=== PATIENT | male | born 1975 | race Caucasian/White ===

== ENCOUNTER 2024-05-13 16:31 | Inpatient (IN) | payer BC, SELFPAY ==
[2024-05-13] VITALS (19 sets, daily range): BP systolic 91–136; BP diastolic 62–99; BMI 28.4
--- NOTE | 2024-05-13 10:34 | ED.GENMED ---
Addendum entered and electronically signed by Radha Farah MD 05/13/24 15:50:
Dr Braxton from cardiology evaluated patient at bedside. Given patient's initial hypotension we will hold off on nitro patch and will likely proceed with cardiac catheterization. Will give 1 sublingual nitroglycerin instead. Patient already
received aspirin. Will hold off on Brilinta. I did add on a stat lipid panel and A1c. Hospitalist aware of plan changes.
Original Note:
History of Present Illness
<Radha Farah MD - Last Filed: 05/13/24 14:45>
General
Chief Complaint: Fainting/Passed Out
Time Seen by Provider: 05/13/24 10:34
History of Present Illness
History of Present Illness:
Patient is a 48-year-old man who is otherwise healthy presenting to the emergency room after an episode of passing out. Per patient he states that he was feeling well yesterday and this morning. 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 He
said that he knows that he was under power while using his bike. 30 minutes later he was sitting at the breakfast table and started to not feel well. Per the he went to the couch and then laid on the floor. He started to get arm pain chest
pain and she checked his blood pressure and it was extremely low. He did not pass out. Upon medics arrival he was awake and alert with improved coloration. His initial blood pressure was 70/30. He was complaining of chest pain that radiated to
his back as well as numbness tingling to the bilateral arm. They obtained a twelve-lead which did not show any ischemic changes. The given aspirin nitro. The started give him fluids. They did the tilt test on him when he syncopized. He did
receive about 500ml that brought his blood pressure up to 107/84. At this time patient's complaint is some chest pain that radiates to his back with numbness tingling in both his arms. No weakness. No leg pain. No palpitations. No family
history of sudden cardiac or cardiac arrhythmia that he is aware of. He did not feel lightheaded dizzy with the exercise this morning.
Past History
<GREY Sapp - Last Filed: >
Past History
ED Past Medical History: Hypercholesterolemia (Minimal)
Social History
Tobacco: Former smoker
Personal:
Living: with family
Employment: Employed
Family History
Family History: Negative Early CAD or CAD
Phy Exam
<Radha Farah MD - Last Filed: 05/13/24 14:45>
Physical Exam
Physical Exam:
GENERAL: in no acute distress
HEENT: normocephalic, extraocular movements intact, moist oral mucosa
NECK: normal inspection
RESPIRATORY: no respiratory distress, clear to auscultation bilaterally
CARDIOVASCULAR: regular rate and rhythm, 2+ radial pulses bilateral
ABDOMEN/: soft, non-distended, non-tender to palpation, no rebound or guarding
EXTREMITIES: non-tender, no edema/swelling
NEUROLOGIC: awake and alert, moves all extremities, equal strength, no sensory deficits
SKIN: warm
Course
<Radha Farah MD - Last Filed: 05/13/24 14:45>
Orders/Labs/Results
Orders:
Orders
05/13/24 08:00
Nitroglycerin [Nitro-Dur] 0.2 mg TRANSDERM DAILY
05/13/24 10:38
EKG [Electrocardiogram (*1)] Urgent
Reason for Study: Chest Pain
EKG- Treatment ONCE
05/13/24 10:42
Ct Chest/Abd/Pel Angio W/Wo Iv Urgent
Reason For Exam: syncope, cp/backpain
05/13/24 10:44
Complete Blood Count/With Diff Urgent
Comprehensive Metabolic Panel Urgent
Troponin I Urgent
05/13/24 10:47
EKG- Treatment ONCE
05/13/24 11:34
Acetaminophen [Tylenol] 650 mg .ROUTE .STK-MED ONE
05/13/24 11:36
Acetaminophen [Tylenol] 650 mg PO NOW STA
05/13/24 12:36
Ketorolac [Toradol] 15 mg IV NOW STA
Mag Hydrox/Al Hydrox/Simeth [Maalox] 30 ml Phenobarb/Hyoscy/Atropine/Scop [] 10 ml Viscous Lidocaine 2% [Xylocaine Viscous Cup] 10 ml PO NOW
05/13/24 12:38
Mag Hydrox/Al Hydrox/Simeth [Maalox] 30 ml .ROUTE .STK-MED ONE
Phenobarb/Hyoscy/Atropine/Scop [] 10 ml .ROUTE .STK-MED ONE
Viscous Lidocaine 2% [Xylocaine Viscous Cup] 15 ml .ROUTE .STK-MED ONE
05/13/24 13:30
Electrocardiogram (*1) Urgent
Reason for Study: Chest Pain
05/13/24 13:32
Troponin I Urgent
05/13/24 14:31
PTT Urgent
Comment: Obtain baseline before beginning heparin infusion if not already collected
Heparin 4,000 units IV NOW STA
Pharmacy Request to Place See Dose Instructions PO NOW STA
Discontinue all Active Warfarin orders?: Yes
Nursing to Place Non Medication Order As Directed
Physician Order: PTT 6 hours after initial start of Heparin infusion
05/13/24 14:45
Heparin 74169 Units/250 ml 25,000 units in 250 ml IV PER PROTOCOL
Weight to be used for heparin protocol in kilograms (kg):: 92.3
Protocol:: Cardiac Tx/Acute Coronary
PTT Goal Range to be used:: PTT 73 to 111 seconds
Order type:: Initial
INITIAL Infusion Dose (UNITS/KG/hr) & then follow protocol:: 15 units/kg/hr
Infusion Dose in UNITS/hr & then follow protocol (UNITS/hr):: 1,400
INFUSION RATE in mL/hr & then follow protocol (mL/hr):: 14
PTT less than or equal to 64 seconds:: Increase rate by 200 units/hr (+ 2 mL/hr)
PTT 64.1 to 72.9 seconds:: Increase rate by 100 units/hr (+ 1 mL/hr)
PTT 73 to 111 seconds:: Target Range. No change in rate.
PTT 111.1 to 130.9 seconds:: Decrease rate by 100 units/hr (- 1 mL/hr)
PTT 131 to 199.9 seconds:: HOLD for 1 hr. Then decrease rate by 200 units/hr (- 2 mL/hr)
PTT greater than or equal to 200 seconds:: HOLD for 2 hrs & Notify Provider. Then decrease by 200 units/hr (-
2 mL/hr)
Lab follow-up:: Each change, PTT q6h until 2 consecutive are therapeutic. Then PTT
daily.
05/13/24 15:[address] See Dose Instructions IV DIRECTED
Abnormal Lab Results
05/13/24 05/13/24
10:44 13:32
Glucose 160 H mg/dl
(70-99)
Troponin I 0.213 H* D ng/ml
05/13/24 10:44
05/13/24 10:44
Vital Signs
Initial and Last Documented VS:
Initial Vital Signs
Temp Pulse Resp BP Pulse Ox
97.9 F 59 18 107/84 99
05/13/24 10:31 05/13/24 10:31 05/13/24 10:31 05/13/24 10:31 05/13/24 10:31
Last Documented Vital Signs
Temp Pulse Resp BP Pulse Ox
97.9 F 62 13 129/99 97
05/13/24 10:31 05/13/24 14:00 05/13/24 14:00 05/13/24 14:00 05/13/24 14:00
<GREY Sapp - Last Filed: >
Orders/Labs/Results
Orders:
Orders
05/13/24 08:00
Nitroglycerin [Nitro-Dur] 0.2 mg TRANSDERM DAILY
05/13/24 10:38
EKG [Electrocardiogram (*1)] Urgent
Reason for Study: Chest Pain
EKG- Treatment ONCE
05/13/24 10:42
Ct Chest/Abd/Pel Angio W/Wo Iv Urgent
Reason For Exam: syncope, cp/backpain
05/13/24 10:44
Complete Blood Count/With Diff Urgent
Comprehensive Metabolic Panel Urgent
Troponin I Urgent
05/13/24 10:47
EKG- Treatment ONCE
05/13/24 11:34
Acetaminophen [Tylenol] 650 mg .ROUTE .STK-MED ONE
05/13/24 11:36
Acetaminophen [Tylenol] 650 mg PO NOW STA
05/13/24 12:36
Ketorolac [Toradol] 15 mg IV NOW STA
Mag Hydrox/Al Hydrox/Simeth [Maalox] 30 ml Phenobarb/Hyoscy/Atropine/Scop [] 10 ml Viscous Lidocaine 2% [Xylocaine Viscous Cup] 10 ml PO NOW
05/13/24 12:38
Mag Hydrox/Al Hydrox/Simeth [Maalox] 30 ml .ROUTE .STK-MED ONE
Phenobarb/Hyoscy/Atropine/Scop [] 10 ml .ROUTE .STK-MED ONE
Viscous Lidocaine 2% [Xylocaine Viscous Cup] 15 ml .ROUTE .STK-MED ONE
05/13/24 13:30
Electrocardiogram (*1) Urgent
Reason for Study: Chest Pain
05/13/24 13:32
Troponin I Urgent
05/13/24 14:31
PTT Urgent
Comment: Obtain baseline before beginning heparin infusion if not already collected
Heparin 4,000 units IV NOW STA
Pharmacy Request to Place See Dose Instructions PO NOW STA
Discontinue all Active Warfarin orders?: Yes
Nursing to Place Non Medication Order As Directed
Physician Order: PTT 6 hours after initial start of Heparin infusion
05/13/24 14:45
Heparin [id number] Units/250 ml 25,000 units in 250 ml IV PER PROTOCOL
Weight to be used for heparin protocol in kilograms (kg):: 92.3
Protocol:: Cardiac Tx/Acute Coronary
PTT Goal Range to be used:: PTT 73 to 111 seconds
Order type:: Initial
INITIAL Infusion Dose (UNITS/KG/hr) & then follow protocol:: 15 units/kg/hr
Infusion Dose in UNITS/hr & then follow protocol (UNITS/hr):: 1,400
INFUSION RATE in mL/hr & then follow protocol (mL/hr):: 14
PTT less than or equal to 64 seconds:: Increase rate by 200 units/hr (+ 2 mL/hr)
PTT 64.1 to 72.9 seconds:: Increase rate by 100 units/hr (+ 1 mL/hr)
PTT 73 to 111 seconds:: Target Range. No change in rate.
PTT 111.1 to 130.9 seconds:: Decrease rate by 100 units/hr (- 1 mL/hr)
PTT 131 to 199.9 seconds:: HOLD for 1 hr. Then decrease rate by 200 units/hr (- 2 mL/hr)
PTT greater than or equal to 200 seconds:: HOLD for 2 hrs & Notify Provider. Then decrease by 200 units/hr (-
2 mL/hr)
Lab follow-up:: Each change, PTT q6h until 2 consecutive are therapeutic. Then PTT
daily.
05/13/24 15:[address] See Dose Instructions IV DIRECTED
Abnormal Lab Results
05/13/24 05/13/24
10:44 13:32
Glucose 160 H mg/dl
(70-99)
Troponin I 0.213 H* D ng/ml
05/13/24 10:44
05/13/24 10:44
Vital Signs
Initial and Last Documented VS:
Initial Vital Signs
Temp Pulse Resp BP Pulse Ox
97.9 F 59 18 107/84 99
05/13/24 10:31 05/13/24 10:31 05/13/24 10:31 05/13/24 10:31 05/13/24 10:31
Last Documented Vital Signs
Temp Pulse Resp BP Pulse Ox
97.9 F 62 13 129/99 97
05/13/24 10:31 05/13/24 14:00 05/13/24 14:00 05/13/24 14:00 05/13/24 14:00
<Radha Farah MD - Last Filed: 05/13/24 14:45>
MDM/Problems Addressed
Differential Diagnosis Includes:
Patient is a 48-year-old male who is otherwise healthy presenting to the emergency department after a near syncopal event. Vitals on arrival notable for blood pressure 107/74 and exam is otherwise reassuring. Differential consists of orthostatic
hypotension versus dissection given the location of his pain. Could also be ACS. Will check blood work EKG and give the remaining fluids. Will obtain CT dissection protocol.
Initial EKG per my interpretation with no ST elevation.
<Radha Farah MD - Last Filed: 05/13/24 14:45>
*Critical Care Note
Total Time (30-74mins, 75-104mins- exclusive of procedures): Not Applicable (47)
comment:
Critical care statement: A total of 47 minutes of critical care time was provided for this patient. This includes management of unstable vital signs, evaluation of the patient at bedside, reviewing the patient's pertinent medical records, ordering
and reviewing studies, arranging urgent treatment with development of a management plan, evaluating patient's response to treatment, frequent reassessment, and discussion with consultants. This time was separate from time utilized to perform the
aforementioned documented procedures.
<Radha Farah MD - Last Filed: 05/13/24 14:45>
Update Note
Update Note:
On reevaluation patient still having pain. Will try Toradol and GI cocktail. Blood pressure has improved status post IV fluids.
Initial blood work unremarkable. CT dissection protocol negative. He does have mild right-sided colitis.
On reevaluation patient appears and feels much better. He states that he only has numbness to the left hand. States that he is is having no chest pain. The arm pain has resolved.
Received a critical call as patient's troponin is 0.213. On reevaluation patient remains feeling much better. He states that he is maybe having 1 out of 10 chest pain and arm pain. I did discuss with cardiology given the NSTEMI with ongoing mild
pain. Recommended no catheterization for now. Will start heparin drip. Recommended Nitropatch. Discussed with hospitalist for admission. Patient aware to notify immediately if any pain tingling or symptoms worsen for repeat EKG.
ED Attending Note
<GREY Sapp - Last Filed: >
-
Portions of this chart may have been created with voice recognition software.� Occasional wrong word or��sound alike� substitutions may have occurred due to the inherent limitations of voice recognition software.
Discharge Plan
Departure
Patient Disposition: Admit
Date of Disposition: 05/13/24
Time of Disposition: 14:41
Presentation/result/management discussed w/ accepting MD/DO: Hospitalist
Discharge Problem:
Non-ST elevation [place] (NSTEMI)
Prescriptions:
No Action
No Current Medications
0
Referrals:
Bulmaro Chery CRNP [Family Provider] -
Interventions
Interventions:
*Risk Screen - Suicide Last Done: 05/13/24 10:38
*General Assessment Last Done: 05/13/24 10:38
*Neglect/Abuse Screening Last Done: 05/13/24 10:38
*ED- Fall Risk Assessment Last Done: 05/13/24 10:38
*ED COVID-19 Vaccine History Last Done: 05/13/24 10:38
ED- Cardiac Assessment Last Done: 05/13/24 10:38
ED- Neurological Assessment Last Done: 05/13/24 10:38
Discharge Date and Time
Print Language: TONGAN
[2024-05-13 10:57] LABS: % Basophils 0.4 % (0-2); % Eosinophils 1.3 % (0-6); % Immature Granulocytes 0.5 % (0-0.5); % Lymphocytes 26.7 % (20.5-51.1); % Monocytes 5.1 % (1.7-9.3); Absolute Eosinophils 0.1 10^3/uL (0-0.7); Absolute Lymphocytes 2.1 10^3/uL (1.2-3.4); Absolute Monocytes 0.4 10^3/uL (0.1-0.6); Absolute Neutrophils 5.3 10^3/uL (1.4-6.5); Hematocrit 46.7 % (39.0-52.0); Hemoglobin 15.6 g/dL (13.0-18.0); Mean Corp Hgb Conc. 33.4 g/dL (33.0-37.0); Mean Corpuscular Hgb 29.4 pg (27.0-31.0); Mean Corpuscular Volume 87.9 fL (80.0-94.0); Mean Platelet Volume 9.6 fL (7.4-10.4); Nucleated Red Blood Cells % 0 % (-); Platelet Count 290 10^3/uL (130-400); Red Blood Cell Count 5.31 10^6/uL (4.70-6.10)
[2024-05-13 11:13] LABS: ALT (SGPT) 30 U/L (0-50); AST (SGOT) 26 U/L (17-59); Albumin 4.2 g/dl (3.5-5.0); Alkaline Phosphatase 70 U/L (38-126); Blood Urea Nitrogen 19 mg/dl (9-20); Calcium 9.4 mg/dl (8.4-10.2); Carbon Dioxide 26 mmol/L (22-30); Chloride 104 mmol/L (98-107); Estimated Creatinine Clearance 87 ml/min; Glucose 160 mg/dl (70-99); Potassium 4.7 mmol/L (3.5-5.1); Sodium 138 mmol/L (135-145); Total Bilirubin 1.1 mg/dl (0.2-1.3); Total Protein 6.9 g/dl (6.3-8.2); eGFR > 60.00
[2024-05-13 11:24] LABS: Troponin I < 0.012 ng/ml
[2024-05-13] MEDS: TYLENOL 650 MG PO (11:36)
[2024-05-13] MEDS: TORADOL 15 MG IV (12:40)
[2024-05-13] MEDS: MAALOX 50 PO (12:41)
[2024-05-13 14:17] LABS: Troponin I 0.213 ng/ml
--- NOTE | 2024-05-13 14:51 | HPS.HSE ---
Family Physician
-
Family Physician: GREY Crabtree
Chief Complaint
-
Chest Pain
History of Present Illness
Patient is a 48 y/o male past medical history of hyperlipidemia, and impaired fasting glucose who presents with chest pain. Patient reports he completed a [employer] work out this morning as usual. About 30 minutes later he started to feel unwell.
He developed chest pain with associated bilateral arm numbness. His took his blood pressure which was noted to be very low. EMS was called who gave him 3 SL nitro and 4 81mg aspirins, and brought him to the emergency department. Initial
troponin was negative, but repeat troponin positive at 0.213. Patient denies any prior cardiac history.
Medical History
Past Medical History
Past Medical History: Reports Other
Additional Past Medical History:
Hyperlipidemia
Impaired Fasting Glucose
Past Surgical History: Reports Other
Additional Past Surgical History:
Appendectomy
Social History
Tobacco: Other (Former cigarette smoker, quit about 8 years ago; Currently Vaping)
Alcohol: Occasional
Family History
Family History: Other (Patient denies any family history of cardiac disease)
Allergies / Home Medications
Allergies reflects when Allergies were last updated in [facility].
Home Medications with original date entered in [facility]
Allergy/Medication List:
Allergies
Allergy/AdvReac Type Severity Reaction Status Date / Time
No Known Allergies Allergy Unverified 05/13/24 10:37
Home Medications
No Meds [No Current Medications] 04/21/14
Review of Systems
-
A 12 point ROS was completed and negative except as noted: Yes
Constitutional: Denies Fever or Chills
Respiratory: Denies Cough or Trouble Breathing
Cardiac: Reports See HPI
Physical Exam
Vital Signs
Vital Signs
Temp Pulse Resp BP Pulse Ox
97.9 F 62 13 129/99 97
05/13/24 10:31 05/13/24 14:00 05/13/24 14:00 05/13/24 14:00 05/13/24 14:00
Physical Exam
General: Comfortable and Conversant
HEENT: Anicteric and Moist mucous membranes
Respiratory: Clear and Non Labored Respirations
Cardiac: S1/S2 and Regular Rhythm
GI: Soft and Non Tender
Rectal: Deferred by Provider
Musculoskeletal: No Clubbing, No Cyanosis and No Edema
Skin: Warm and Dry
Neuro: Awake, Alert, Oriented and Nonfocal/grossly intact
Psych: Calm
Laboratory Results
-
05/13/24 10:44
05/13/24 10:44
Laboratory Results
Total Bilirubin 1.1 mg/dl (0.2-1.3) 05/13/24 10:44
AST 26 U/L (17-59) 05/13/24 10:44
ALT 30 U/L (0-50) 05/13/24 10:44
Alkaline Phosphatase 70 U/L (38-126) 05/13/24 10:44
Troponin I 0.213 ng/ml H* D 05/13/24 13:32
Data Reviewed
-
Lab Data: Labs Reviewed by me
Impression/Plan
-
Non-ST Elevation CT
-Consult Cardiology
-Trend troponin to peak
-Check Echo
-Continue heparin drip
-Continue Nitro-Patch
-Continue aspirin
-Check Lipid Panel and HgbA1c
-Plan for Cardiac Cath on Wednesday
Nicotine Dependence
-Encouraged patient to quit vaping
-Continue nicotine patch
DVT proph: Heparin drip
Code Status: Full Code
[2024-05-13 15:25] LABS: APTT 28.6 Sec (23.4-35.0)
[2024-05-13] MEDS: NITRO-DUR TRANSDERM (15:41)
[2024-05-13] MEDS: NITROSTAT (SUBLINGUAL) 0.4 MG SL (15:42)
--- NOTE | 2024-05-13 15:45 | CON.CAR ---
Consultation
Consultation Request
Date/Time Consultation Requested: 05/13/2024
Date/Time Consultation Performed: 05/13/2024
Requesting Provider: Dr. Farah
Performing Provider: Dr. Braxton
Reason for Consultation: Chest pain
Medical History
-
Chief Complaint: Chest pain/syncope
History of Present Illness:
48-year-old male with hyperlipidemia (untreated) and prediabetes/possible diabetes (untreated), and chronic cigarette use (since age 18) but then switched to all-day vaping 9 years ago who presented with chest pain and syncope at home. The patient
developed the symptoms after working on his [employer] bike. There was radiation of the pain to his bilateral shoulders and down to his left arm. The pain was very intense when it happened and he slid down to the floor at home in front of his ,
who then called EMS. EMS gave the patient sublingual nitroglycerin and his systolic blood pressure dropped to 70 mmHg; his blood pressure subsequently improved with a 500 cc bolus of normal saline. Currently, the patient is still having 1-2 out of
10 chest pain and left arm numbness; he appears pale. He is also experiencing some dyspnea. Labs were unremarkable, except for a glucose of 160 and the second set of troponin that was abnormal at 0.213 (first that was normal). The patient's
is at bedside.
Past Medical History
Past Medical History: Hypercholesterolemia and NIDDM (At least prediabetic, possibly diabetic)
Past Surgical History: Appendectomy
Social History
Tobacco: Vaping (All day; previously smoked cigarettes since age 18 but then started vaping all day 9 years ago)
Alcohol: Occasional
Personal:
Living: With Family
Employment: Employed
Family History
Family History: Reviewed & Not Pertinent
Allergies / Home Medications
Allergy/AdvReac Type Severity Reaction Status Date / Time
No Known Allergies Allergy Unverified 05/13/24 10:37
�Medication �Instructions �Recorded �Confirmed �Type
No Meds [No Current Medications] 04/21/14 05/13/24 History
Review of Systems
-
History Source: Patient
All other systems: Negative unless noted
Respiratory: Trouble Breathing
Neurological: Numbness (Left arm)
Physical Exam
Vital Signs
Temp Pulse Resp BP Pulse Ox
97.9 F 62 13 114/94 97
05/13/24 10:31 05/13/24 14:00 05/13/24 14:00 05/13/24 15:42 05/13/24 14:00
Lab Results
05/13/24 10:44
05/13/24 10:44
Troponin I 0.213 ng/ml H* D 05/13/24 13:32
Physical Exam
General: Comfortable and Other (Pale-appearing)
HEENT: Anicteric
Respiratory: Clear
Cardiac: S1/S2 and Regular Rhythm
Breast: N/A
GI: Soft
Rectal: Deferred by Provider
Musculoskeletal: No Edema
Skin: Warm and Dry
Neuro: AO x 3
Psych: Calm
Impression / Plan
-
48-year-old male with hyperlipidemia (untreated) and prediabetes/possible diabetes (untreated), and chronic cigarette use (since age 18) but then switched to all-day vaping 9 years ago who presented with chest pain and syncope at home. The patient
developed the symptoms after working on his [employer] bike. There was radiation of the pain to his bilateral shoulders and down to his left arm. The pain was very intense when it happened and he slid down to the floor at home in front of his ,
who then called EMS. EMS gave the patient sublingual nitroglycerin and his systolic blood pressure dropped to 70 mmHg; his blood pressure subsequently improved with a 500 cc bolus of normal saline. Currently, the patient is still having 1-2 out of
10 chest pain and left arm numbness; he appears pale. He is also experiencing some dyspnea. Labs were unremarkable, except for a glucose of 160 and the second set of troponin that was abnormal at 0.213 (first that was normal).
CP/NSTEMI/syncope:
-Cause for syncope is concerning for possible cardiac arrhythmia.
-The patient is still having mild chest pain and left arm this; cannot completely get him comfortable.
-Patient experienced hypotension previously; reluctant to continue to give him nitroglycerin/Nitropaste.
-Will start heparin (bolus and drip).
-Given full-dose aspirin.
-Case discussed with Interventional Cardiology; patient will undergo priority cardiac catheterization today, as symptoms persist.
-Will obtain echocardiogram this admission.
Hyperlipidemia:
-Check lipid panel.
-Will be started on statin.
Prediabetes:
-Check hemoglobin A1c.
Chronic heavy vaping/prior cigarette use:
-Counseled today at length on the importance of cessation; guidance offered (nicotine patches).
Data Reviewed
-
EKG: Report Reviewed by me (Normal sinus rhythm.)
CT Scan: Report Reviewed by me (No dissection)
Medical Tests (Nuc Med, Echo etc): Discussed with Physician (ER Attending, Costume Designer), Discussed with Nurse, Discussed with Patient and Discussed with Family ( at bedside)
Labs: Labs Reviewed by me, Discussed with Physician (ER Attending, Costume Designer), Discussed with Nurse and Discussed with Family ( at bedside)
[2024-05-13] MEDS: HEPARIN 4000 UNITS IV (15:46)
[2024-05-13] MEDS: HEPARIN 25000 UNITS/250 ML IV (15:48)
--- NOTE | 2024-05-13 15:50 | W.PN.UPDATE ---
Update Note
Progress Note Update
This is an addendum to the H&P written by Mikala Bateman on 05/13/2024.
48-year-old male past medical history of hyperlipidemia, prediabetes, presenting with chest pressure after using [employer] this morning with numbness rating down the left arm also with shortness of breath and sweating.
Pain improved with 4 nitroglycerin still has some pain. EMS gave him aspirin.
Patient initially hypotensive blood pressure in 70s before EMS was called.
EKG unremarkable. First troponin negative, second troponin 0.2.
CTA chest abdomen pelvis unremarkable apart from mild acute uncomplicated right-sided colitis that does not correlate clinically.
Presentation concerning for NSTEMI. Trend troponins until peak, continue aspirin, heparin drip, echo, cardiology consulted. Check A1c and lipid panel. Plan for potential catheterization today.
[2024-05-13 16:57] LABS: ACT-LR - POC 155 Seconds (116-155)
[2024-05-13 17:08] LABS: ACT-LR - POC 298 Seconds (116-155)
[2024-05-13 17:20] LABS: ACT-LR - POC 305 Seconds (116-155)
[2024-05-13 17:39] LABS: ACT-LR - POC 319 Seconds (116-155)
--- NOTE | 2024-05-13 18:09 | ITS.CL.CATH ---
Culinary Worker - Catheterization
Cardiac Catheterization
Procedure Report:
LEFT HEART CATH AND CORONARY INTERVENTION
Date of Procedure: May 13, 2024
Referring: Dr. Jacob Braxton
PROCEDURES:
1. Left heart catheterization with coronary and single-plane left ventriculography
2. Successful placement of overlapping 3.5 x 12 mm and 3.0 x 38 mm stents from the mid to distal right coronary artery. The stented segment was postdilated with a 3.5 mm noncompliant balloon to nominal pressures distally and to 22 lien in the
proximal and midportion of the stents
INDICATION: This is a 48-year-old gentleman with no prior cardiac history who reported the onset of substernal chest tightness and feeling poorly after riding his [employer] bike. He presented to [facility] via 911 transport. His initial
electrocardiogram did not suggest an acute ST elevation myocardial infarction. He received heparin and nitroglycerin with improvement/near resolution in symptoms. His initial troponin was undetectable but repeat troponin returned mildly elevated
and he continued to experience a low-grade chest tightness. He was seen and evaluated by Dr. Braxton who felt emergent angiography was appropriate in the setting of ongoing symptoms refractory to medical therapy.
ACCESS: Right radial artery, 6 Venezuelan sheath
HEMODYNAMICS (mmHg):
AO (s/d, m) : 100/52
LV (s/d) : 105/5
LVEDP : 13
CORONARY FINDINGS
Dominance: Right
LEFT MAIN: Normal
LEFT ANTERIOR DESCENDING: The LAD arises normally from the left main and runs in the anterior interventricular groove. The mid LAD beyond a small first diagonal branch has a 70% stenosis. The mid to distal LAD has diffuse luminal irregularities
but no focal obstructive stenosis. The apical LAD has a 95% stenosis.
CIRCUMFLEX: The circumflex is a medium caliber nondominant vessel that supplies a single large obtuse marginal branch. The mid circumflex proximal to the obtuse marginal branch has a 60% stenosis and there is a 50% stenosis in the proximal portion
of the obtuse marginal branch.
RIGHT CORONARY: The right coronary artery is a dominant vessel with a 60% stenosis in the mid vessel beyond a terminal RV marginal branch. The distal right coronary artery becomes 100% occluded proximal to the crux and the vessel.
VENTRICULOGRAPHY: Left ventriculography is performed in an [place] projection. The digital single-plane left ventricular ejection fraction is estimated at 55% with posterior basal and diaphragmatic inferior hypokinesis
ANGIOPLASTY PROCEDURE DETAIL: Upon review of the diagnostic catheterization films the decision was made to proceed with percutaneous revascularization of the occluded RCA. Intravenous heparin was administered and the ACT was monitored throughout
the procedure and maintained within therapeutic limits. A 180 mg loading dose of ticagrelor was given at the beginning of the interventional procedure.
The origin of the right coronary artery was cannulated with a 6 Venezuelan JR4 guiding catheter and a BMW guidewire was advanced to the distal right coronary artery and crossed the occluded segment with a moderate degree of difficulty. Predilation was
performed using a 2.0 mm balloon and was followed by placement of a 3.0 x 38 mm Shaun stent which was implanted at nominal pressures with the distal edge of the stent proximal to the crux of the RCA. Unfortunately, the 38 mm stent did not cover this
stenotic segment in the mid right coronary artery and a second 3.5 x 12 mm Kensal stent was positioned proximal to and overlapping with the initial stent. The 3.5 x 12 mm Kensal stent was implanted at nominal pressures. The entire stented segment was
postdilated with a 3.5 mm noncompliant balloon to nominal pressures distally, 18-20 lien in the midportion of the stent and to 22 lien in the proximal to midportion of the stented segment
CONSCIOUS SEDATION: Oversight was provided for conscious sedation during the procedure. A circulating nurse was dedicated to monitoring consciousness and administering appropriate levels of conscious sedation during the procedure
RADIATION SUMMARY: Fluoro Time (min): 25.2, Dose (mGy): 931, DAP (Gy.cm2) : 63
CONCLUSIONS
1. Evolving non-ST segment elevation inferior wall myocardial infarction with 100% occlusion of the distal RCA. Overlapping 3.5 x 12 mm and 3.0 x 38 mm Kensal stents were implanted from the mid to distal RCA and postdilated to high pressures with a
3.5 mm noncompliant balloon
2. Residual coronary disease involving the mid LAD just beyond the first diagonal branch and apical LAD as well as mid circumflex/OM1.
3. Preserved LV systolic function with posterior basal and diaphragmatic inferior hypokinesis
RECOMMENDATIONS
1. Uninterrupted dual antiplatelet therapy for 12 months
2. High intensity statin therapy
3. Will trend serial troponin levels and obtain hemoglobin A1c and fasting lipid profile
4. Guideline directed medical therapy will be administered/titrated during his hospitalization
Copy to: Dr. Jacob Braxton
--- NOTE | 2024-05-13 18:15 | PTCARENOTE ---
Received pt from the cathode maker. VSS Right radial band intact w/ 11 ml of air. NSS at KVO. Pt denies any chest pain or any other discomfort. Will monitor.
[2024-05-13 18:29] LABS: HDL Cholesterol 42 mg/dl; LDL Cholesterol, Calculated 141 mg/dl; Total Cholesterol 202 mg/dl (50-199); Triglyceride 96 mg/dl (10-149); Very Low Density Lipoprotein 19 mg/dl (0-30)
[2024-05-13] MEDS: NSS 500 IV (18:35)
[2024-05-13] MEDS: NICODERM TRANSDERMAL 14 MG TRANSDERM (18:44)
[2024-05-13] MEDS: LIPITOR 80 MG PO (18:45)
[2024-05-13] MEDS: DULCOLAX 10 MG RECTAL (19:58)
[2024-05-13] MEDS: MIRALAX 17 GRAMS PO (20:43)
[2024-05-14] VITALS (9 sets, daily range): BP systolic 93–133; BP diastolic 56–84
--- NOTE | 2024-05-14 00:46 | PTCARENOTE ---
assumed care of patient at the change of shift. AAOx3. family at the bedside. denies any cp. mild complaint of sob-baseline per patient. lungs clear throughout. SR on tele 60s. bp stable. R radial site CDI. no issues removed radial band. answered
all questions. med list/ACS booklet provided. educated patient to inform RN with any new changes overnight. ambulating to the bathroom independently. x1 BM. urinating with no issues. call brower within reach.
[2024-05-14 07:10] LABS: Hematocrit 42.1 % (39.0-52.0); Hemoglobin 14.4 g/dL (13.0-18.0); Mean Corp Hgb Conc. 34.2 g/dL (33.0-37.0); Mean Corpuscular Hgb 29.3 pg (27.0-31.0); Mean Corpuscular Volume 85.7 fL (80.0-94.0); Mean Platelet Volume 9.8 fL (7.4-10.4); Platelet Count 268 10^3/uL (130-400); Red Blood Cell Count 4.91 10^6/uL (4.70-6.10); Red Cell Dist. Width 13.1 % (11.5-14.5); White Blood Cell Count 11.2 10^3/uL (4.8-10.8)
[2024-05-14 07:15] LABS: Blood Urea Nitrogen 13 mg/dl (9-20); Calcium 9.1 mg/dl (8.4-10.2); Carbon Dioxide 24 mmol/L (22-30); Chloride 104 mmol/L (98-107); Estimated Creatinine Clearance 119 ml/min; Glucose 128 mg/dl (70-99); HDL Cholesterol 40 mg/dl; LDL Cholesterol, Calculated 115 mg/dl; Potassium 4.1 mmol/L (3.5-5.1); Sodium 134 mmol/L (135-145); Total Cholesterol 176 mg/dl (50-199); Triglyceride 107 mg/dl (10-149); Very Low Density Lipoprotein 21 mg/dl (0-30); eGFR > 60.00
[2024-05-14] MEDS: NICODERM TRANSDERMAL 14 MG TRANSDERM (09:06)
[2024-05-14] MEDS: LOW STRENGTH ASPIRIN 81 MG PO (09:10)
[2024-05-14] MEDS: BRILINTA 90 MG TUBE ×2 (09:11→20:55)
--- NOTE | 2024-05-14 12:10 | W.PN.CD ---
Today's Communication / Plan
-
-Likely cause for syncope was arrhythmogenic as RCA was occluded.
-Status-post TOBIAS x 2 to mid to distal RCA yesterday; telemetry stable.
-Residual CAD: 70% mid LAD, 95% apical LAD, 60% LCX, 50% OM.
-Interventional Cardiology to review films regarding possible staged PCI; will make NPO overnight.
-Continue aspirin, Brilinta, and atorvastatin 80 mg daily; no beta-eduard secondary to baseline bradycardia.
-Echocardiogram tomorrow.
-Counseled again today on the importance of vaping cessation; guidance offered (nicotine patches).
Impression / Plan
-
48-year-old male with hyperlipidemia (untreated) and prediabetes/possible diabetes (untreated), and chronic cigarette use (since age 18) but then switched to all-day vaping 9 years ago who presented with chest pain and syncope at home. The patient
developed the symptoms after working on his [place] bike. There was radiation of the pain to his bilateral shoulders and down to his left arm. The pain was very intense when it happened and he slid down to the floor at home in front of his ,
who then called EMS. EMS gave the patient sublingual nitroglycerin and his systolic blood pressure dropped to 70 mmHg; his blood pressure subsequently improved with a 500 cc bolus of normal saline. Currently, the patient is still having 1-2 out of
10 chest pain and left arm numbness; he appears pale. He is also experiencing some dyspnea. Labs were unremarkable, except for a glucose of 160 and the second set of troponin that was abnormal at 0.213 (first that was normal).
CP/NSTEMI/syncope:
-Likely cause for syncope was arrhythmogenic as RCA was occluded.
-Status-post TOBIAS x 2 to mid to distal RCA yesterday; telemetry stable.
-Residual CAD: 70% mid LAD, 95% apical LAD, 60% LCX, 50% OM.
-Troponin peaked at 134.
-Interventional Cardiology to review films regarding possible staged PCI; will make NPO overnight.
-Continue aspirin, Brilinta, and atorvastatin 80 mg daily; no beta-eduard secondary to baseline bradycardia.
-Echocardiogram tomorrow.
Hyperlipidemia:
-LDL is 115 (goal less than 55).
-Continue atorvastatin 80 mg daily; patient was not on a statin at home.
Prediabetes:
-Hemoglobin A1c 6.0%.
-Appropriate lifestyle/dietary management recommended.
Chronic heavy vaping/prior cigarette use:
-Counseled again today on the importance of vaping cessation; guidance offered (nicotine patches).
Physical Exam
Vital Signs/Labs
Vital Signs
Temp Pulse Resp BP Pulse Ox
98.3 F 59 18 113/82 97
05/14/24 07:06 05/14/24 05:45 05/14/24 07:06 05/14/24 05:06 05/14/24 07:06
05/13/24 05/14/24 05/15/24
05:59 06:59 06:59
Actual Weight
05/14/24 06:54
05/14/24 06:54
APTT Cancelled 05/14/24 00:30
Triglycerides 107 mg/dl (10-149) 05/14/24 06:54
LDL Cholesterol, Calc 115 mg/dl 05/14/24 06:54
VLDL Cholesterol, Calc 21 mg/dl (0-30) 05/14/24 06:54
HDL Cholesterol 40 mg/dl 05/14/24 06:54
LAB Results
05/13/24 05/13/24 05/13/24
10:44 13:32 18:44
Troponin I < 0.012 0.213 H* D 134.000 H* D
05/14/24 05/14/24
00:29 06:54
Troponin I 93.400 H* D 59.400 H* D
Physical Exam
Constitutional: No acute distress and Comfortable
EENT: Anicteric
Cardiovascular: Rhythm & rate is regular, Pedal edema is absent, Systolic murmur absent and S1S2 is normal
Respiratory: Respiratory effort normal and Lungs clear to auscul.
GI: Soft
Neuro/Psych: AO x 3
Other: Skin (Warm, dry, intact)
Data Reviewed
-
Date of Service: May 14, 2024
EKG: Tracing Personally Visualized and interpreted (Telemetry: Sinus rhythm)
Medical Tests (PFT, Pathology etc): Discussed with Nurse (Primary Hospitalist), Discussed with Patient and Discussed with Family ( at bedside)
Labs: Labs Reviewed by me
[2024-05-14] MEDS: NITRO-DUR 0.2 MG TRANSDERM (12:56)
--- NOTE | 2024-05-14 14:34 | W.PN.HOSP.TC ---
Today's Communication/Plan
-
await decision from Cardio regarding possible further intervention
Assessment / Plan
Assessment / Plan
Non-ST Elevation AR
Trop 0.213-->134-->93.4-->59.4
-Consulted Cardiology
underwent TOBIAS x 2 to mid-distal RCA
await further input from cardio regarding possible staged PCI
-Check Echo
-now on Lovenox 40 qd
-Continue Nitro-Patch
-Continue aspirin/Brilinta
- LDL 115/HDL40
will check Lp(a)
discussed with Cardio adding low dose Toprol XL, preference is to hold off for now
Nicotine Dependence
-patient told to quit vaping. Told he is done with Nicotine
-Continue nicotine patch
DVT proph: Lovenox
reviewed with and Dr. Braxton
Code Status: Full Code
Anticipated Discharge: > 48 hours
Subjective/Interval History
-
Date of Service: May 14, 2024
No chest pain
Objective Data
-
Labs:
Laboratory Results
05/14/24
06:54
WBC 11.2 H
Hgb 14.4
Hct 42.1
Plt Count 268
Sodium 134 L
Potassium 4.1
Chloride 104
Carbon Dioxide 24
BUN 13
Creatinine 0.8
Glucose 128 H
Calcium 9.1
Vital Signs:
Vital Signs
Temp Pulse Resp BP Pulse Ox
98.1 F 63 18 96/71 97
05/14/24 12:42 05/14/24 12:45 05/14/24 12:42 05/14/24 12:39 05/14/24 12:42
I&O
05/13/24 05/14/24 05/15/24
05:59 06:59 06:59
Intake Total
Balance
Review of Systems
-
History Source: Patient and Family ( at bedside)
Constitutional: Denies Fever
EENT: Reports No Symptoms Reported
Respiratory: Reports No Symptoms
Cardiac: Reports No Symptoms; Denies Chest Pain or Palpitations
Abdomen/GI: Reports No Symptoms; Denies Abdominal Pain
Genitourinary: Reports No Symptoms
Physical Exam
-
General: Well Developed, Well Nourished and No Apparent Distress
HEENT: Normocephalic, Atraumatic and Moist Mucous Membranes
Respiratory: Clear to Auscultation; Negative Wheezes, Rales or Rhonchi
Cardiac: Regular Rhythm and S1/S2
GI: Soft, Nontender and Nondistended
Musculoskeletal: No Clubbing, No Cyanosis and No Edema
Neuro: Awake, Alert and Oriented
[2024-05-14] MEDS: TYLENOL 650 MG PO (16:23)
--- NOTE | 2024-05-14 16:39 | PTCARENOTE ---
Discussed the nitroglycerin patch w/ pt and pt's . Initially the pt refused the patch. After further education by RN, pt agreed to wear the patch. Will monitor.
[2024-05-14] MEDS: LOVENOX 40 MG SC (20:54)
[2024-05-14] MEDS: MIRALAX 17 GRAMS PO (20:54)
[2024-05-14] MEDS: LIPITOR 80 MG PO (20:55)
[2024-05-15] VITALS (13 sets, daily range): BP systolic 102–122; BP diastolic 74–88; BMI 27.5
--- NOTE | 2024-05-15 00:52 | PTCARENOTE ---
Rec'd pt at change of shift. VSS and SR on TELE monitor. Pt denies any pain or discomfort. See MAR and flowchart for full pt assessment. Pt resting with call brower in reach and plan of care ongoing.
[2024-05-15 05:24] LABS: % Basophils 0.2 % (0-2); % Eosinophils 2.8 % (0-6); % Immature Granulocytes 0.4 % (0-0.5); % Lymphocytes 20.3 % (20.5-51.1); % Monocytes 9.5 % (1.7-9.3); % Neutrophils 66.8 % (42.2-75.2); Absolute Eosinophils 0.2 10^3/uL (0-0.7); Absolute Lymphocytes 1.7 10^3/uL (1.2-3.4); Absolute Monocytes 0.8 10^3/uL (0.1-0.6); Absolute Neutrophils 5.6 10^3/uL (1.4-6.5); Hematocrit 45.2 % (39.0-52.0); Hemoglobin 15.2 g/dL (13.0-18.0); Mean Corp Hgb Conc. 33.6 g/dL (33.0-37.0); Mean Corpuscular Hgb 29.1 pg (27.0-31.0); Mean Corpuscular Volume 86.4 fL (80.0-94.0); Mean Platelet Volume 10.1 fL (7.4-10.4); Nucleated Red Blood Cells % 0 % (-); Platelet Count 281 10^3/uL (130-400); Red Blood Cell Count 5.23 10^6/uL (4.70-6.10); Red Cell Dist. Width 13.2 % (11.5-14.5); White Blood Cell Count 8.3 10^3/uL (4.8-10.8)
[2024-05-15 05:50] LABS: ALT (SGPT) 54 U/L (0-50); AST (SGOT) 199 U/L (17-59); Albumin 4.2 g/dl (3.5-5.0); Alkaline Phosphatase 70 U/L (38-126); Blood Urea Nitrogen 17 mg/dl (9-20); Calcium 9.6 mg/dl (8.4-10.2); Carbon Dioxide 25 mmol/L (22-30); Chloride 103 mmol/L (98-107); Estimated Creatinine Clearance 95 ml/min; Glucose 104 mg/dl (70-99); Potassium 4.5 mmol/L (3.5-5.1); Sodium 137 mmol/L (135-145); Total Bilirubin 1.8 mg/dl (0.2-1.3); Total Protein 6.7 g/dl (6.3-8.2); eGFR > 60.00
--- NOTE | 2024-05-15 07:53 | W.PN.CD ---
Today's Communication / Plan
-
Staged PCI/iFR of LAD/LCx today.
Maintain current therapy.
Impression / Plan
-
Impression/Plan: 48-year-old male with hyperlipidemia (untreated) and prediabetes/possible diabetes (untreated), and chronic cigarette use (since age 18) but then switched to all-day vaping 9 years ago who presented with chest pain and syncope at
home, found to have high risk NSTEMI (unable to medically manage chest pain) s/p PCI to occluded mid/distal RCA with residual proximal LAD/LCx disease.
#NSTEMI:
-Acute, threat to life.
-Troponin peaked at 134.
-S/P PCI to mid/distal RCA (Medtronic Shaun 3.5 x 12, 3.0 x 30 TOBIAS, post dilated with a 3.5 NCB) with Dr. Willett, 05/13/2024.
-Residual CAD: 70% mid LAD, 95% apical LAD, 60% LCX, 50% OM.
-Continue aspirin, ticagrelor and atorvastatin 80 mg daily; no beta-eduard secondary to baseline bradycardia.
-Echocardiogram pending.
-Staged PCI/iFR of LAD/LCx today.
#Syncope
-Acute.
-Likely arrhythmogenic from occluded RCA (transient heart block?).
-Holding beta eduard as noted above.
-Monitor telemetry.
-Daily weights.
#Hyperlipidemia
-Chronic, stable.
-Total cholesterol = 176, LDL = 115, HDL = 40, Triglycerides = 107.
-Continue atorvastatin 80 mg daily. Goal LDL < 55.
#Prediabetes:
-Hemoglobin A1c 6.0%.
-Appropriate lifestyle/dietary management recommended.
#Chronic heavy vaping/prior cigarette use:
-Counseled again today on the importance of vaping cessation; guidance offered (nicotine patches).
Subjective/Interval History:
No weight recorded today.
Feels well.
DATA:
Cardiac Catheterization/PCI, 05/13/2024:
CONCLUSIONS
1. Evolving non-ST segment elevation inferior wall myocardial infarction with 100% occlusion of the distal RCA. Overlapping 3.5 x 12 mm and 3.0 x 38 mm Shaun stents were implanted from the mid to distal RCA and postdilated to high pressures with a
3.5 mm noncompliant balloon
2. Residual coronary disease involving the mid LAD just beyond the first diagonal branch and apical LAD as well as mid circumflex/OM1.
3. Preserved LV systolic function with posterior basal and diaphragmatic inferior hypokinesis
CTA Abdomen/Pelvis, 05/13/2024:
IMPRESSION:
1. No aortic aneurysm or dissection.
2. Suspect mild acute uncomplicated right-sided colitis, likely of infectious/inflammatory etiology.
3. 2.1 cm right hepatic lobe hemangioma.
Physical Exam
Vital Signs/Labs
Vital Signs
Temp Pulse Resp BP Pulse Ox
36.6 C 68 16 102/77 97
05/15/24 04:09 05/15/24 04:09 05/15/24 04:09 05/15/24 04:09 05/15/24 04:09
05/13/24 05/14/24 05/15/24
10:59 11:59 11:59
Actual Weight
05/15/24 04:20
05/15/24 04:20
APTT Cancelled 05/14/24 00:30
Triglycerides 107 mg/dl (10-149) 05/14/24 06:54
LDL Cholesterol, Calc 115 mg/dl 05/14/24 06:54
VLDL Cholesterol, Calc 21 mg/dl (0-30) 05/14/24 06:54
HDL Cholesterol 40 mg/dl 05/14/24 06:54
LAB Results
05/13/24 05/13/24 05/13/24
10:44 13:32 18:44
Troponin I < 0.012 0.213 H* D 134.000 H* D
05/14/24 05/14/24
00:29 06:54
Troponin I 93.400 H* D 59.400 H* D
Physical Exam
Constitutional: No acute distress and Comfortable
EENT: Anicteric and Moist mucous membranes
Cardiovascular: Rhythm & rate is regular, Pedal edema is absent, JVD pressure is normal, S1S2 is normal and Murmur/rub/gallop absent
Respiratory: Respiratory effort normal, Lungs clear to auscul., Wheeze Absent, Crackles Absent and Rhonchi Absent
GI: Soft, Distention absent, Flat, Non tender and Normal bowel sounds
Neuro/Psych: AO x 3
Other: Cath Site (Right radial access site is C/D/I.)
Data Reviewed
-
Date of Service: May 15, 2024
Medical Decision Making: Reviewed Test Results, Independent Historian Assessment and Test Interpretation
EKG: Tracing Personally Visualized and interpreted and Report Reviewed by me
X-Ray/CT/US/MRI/NUC/PET: Image Personally Visualized and interpreted and Report Reviewed by me
Medical Tests (PFT, Pathology etc): Image Personally Visualized and interpreted and Report Reviewed by me
Labs: Labs Reviewed by me
Old Records: Reviewed
--- NOTE | 2024-05-15 08:00 | PTCARENOTE ---
Assumed care of pt from prev nsg shift; Pt is AAOx3 w/no c/o CP or SOB. Pt's VSS w/HR 60's & BP 112/75 this AM. Pt is SR is on telemetry monitoring. 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 Pt ambulating in &
halls. Pt NPO awaiting repeat poss cardiac cath today. Plan of care ongoing.
[2024-05-15] MEDS: NITRO-DUR 0.2 MG TRANSDERM (09:23)
[2024-05-15] MEDS: LOW STRENGTH ASPIRIN 81 MG PO (09:24)
[2024-05-15] MEDS: NICODERM TRANSDERMAL 14 MG TRANSDERM (09:24)
[2024-05-15] MEDS: BRILINTA 90 MG TUBE (09:24)
--- NOTE | 2024-05-15 10:37 | PTCARENOTE ---
Report given to SUNIL in the cor[facility] sl[facility] sawyer; pt taken in his bed to Cath.
[2024-05-15 12:05] LABS: ACT-LR - POC > 397 Seconds (116-155)
[2024-05-15 12:05] LABS: ACT-LR - POC > 397 Seconds (116-155)
--- NOTE | 2024-05-15 12:09 | ITS.CL.ANGIO ---
Calculator Operator - Angioplasty
Angioplasty
Procedure Report:
CARDIAC CATHETERIZATION REPORT
Date of Procedure: 05/15/2024
Referring: Jacob Braxton M.D.
INDICATION: Staged PCI.
PROCEDURE:
1. Left-sided coronary angiography.
2. Successful IFR of the left circumflex.
3. Successful intracoronary lithotripsy of the densely calcified proximal LAD lesion.
4. Successful IVUS guided PCI of the proximal LAD lesion.
A total of 48 minutes of procedural/moderate sedation was utilized. An independent medical logistics specialist was present to assist with and help manage the patient's level of consciousness and physiologic status.
ACCESS:
1. 6 Tongan right rate artery using a modified Seldinger.
CATHETERS:
1. 6 Tongan EBU 3.5 guiding catheter.
HEMODYNAMIC DATA
Weight (kg): 92.1
AO (s/d/x, mmHg): 112/81/97
LV (s/x mmHg): Not obtained.
LEFT VENTRICULOGRAPHY: Not performed.
CORONARY ANGIOGRAPHY
Dominance: Right.
Left Main: Short, bifurcating vessel. There is no coronary artery disease.
LAD: Large size vessel giving rise to several diagonals. There is a densely calcified, 80% lesion in the proximal LAD. There is a 30% lesion in the mid LAD. There is a 90% lesion in the apex.
Ramus: Congenitally absent.
Circumflex: Large size, nondominant vessel that is essentially a single large obtuse marginal which subsequently divides into 3 daughter branches. There is a 50% lesion in the proximal vessel followed by a 30-40% lesion more distal.
RCA: Not injected. Known to be a normal size, dominant vessel with a stent in the proximal and distal RCA. There is a 50% lesion in the proximal RPDA.
INTERVENTION(S)
1. Successful IFR of the 50% proximal circumflex and 30-40% mid circumflex lesions, demonstrating nonocclusive disease (IFR = 0.98).
2. Successful intracoronary lithotripsy of the 80% proximal LAD stenosis (shockwave 3.5 x 12 lithotripsy balloon) with complete expansion of the lithotripsy balloon.
3. Successful IVUS guided PCI of the 80% proximal LAD stenosis (Xience Skypoint 3.25 x 28 TOBIAS, postdilated with a 3.5 NC balloon throughout and a 4.0 x 12 NC balloon in the proximal margin) with reduction in stenosis to 0%, maintaining BRYAN-3 flow.
Narrative:
The decision was made to perform physiologic testing. The 6 Tongan EBU 3.5 guiding catheter was advanced into the ascending aorta and seated in the left main coronary artery. Additional heparin was given to obtain an ACT greater than 250 seconds.
An iFR wire was zeroed outside of the body, then inserted into the guiding sheath. The wire was advanced and the transducer was normalized just outside of the guiding catheter tip. The wire was advanced into the distal circumflex, beyond the tandem
50% proximal circumflex and 30-40% mid circumflex lesions. Three iFR measurements were taken. The lesion was determined to be nonocclusive (0.98).
We then turned our attention to the 80% proximal LAD lesion. Additional heparin was given and a Power Turn Flex wire was advanced into the distal LAD. The 80% proximal LAD lesion was predilated with a 2.0 x 12 semi-compliant balloon to 12 lien.
The decision was made to perform intracoronary imaging. An IVUS catheter was advanced through the guiding catheter and into the ostium of the artery. Ring down was performed once the imaging crystal was no longer inside of the guiding catheter. The
IVUS catheter was advanced into the mid LAD. Intravascular ultrasound was performed in a retrograde fashion using a slow pullback. Intracoronary imaging demonstrated dense atherosclerotic disease in the proximal LAD including areas of
circumferential calcification and severe stenosis.
Given the significant calcification, the decision was made to proceed with plaque modification. A Shockwave 3.5 x 12 coronary lithotripsy balloon was advanced over the wire and into the proximal LAD lesion. The balloon was sterilely connected to
the controller and prepped to negative pressure. Meticulous care was taken while positioning the shockwave balloon. Once in satisfactory position, the balloon was inflated to 4 lien. After confirming good contact with the vessel wall, 10 pulses
were delivered. After delivering 10 pulses, the balloon was inflated to 6 lien then deflated. The entire lesion was treated in a similar manner for total of 6 rounds.
The Shockwave balloon was removed and a Xience Skypoint 3.25 x 28 drug-eluting stent was advanced. The stent was deployed at 12 atmospheres. The stent balloon was removed. A 3.5 x 12 noncompliant balloon was advanced into the stent and the stent was
postdilated to 12 atmospheres in the distal margin and 16 lien in the mid stent and proximal margin. The noncompliant balloon was withdrawn and a 4.0 x 12 noncompliant balloon was advanced. The proximal margin of the stent was postdilated to 12
lien.
IVUS was repeated, showing good stent expansion and apposition throughout the entire stented segment.
Angiography was performed in orthogonal views, confirming good stent expansion and an excellent angiographic result. The coronary wire was withdrawn and the guide was disengaged from the artery. The catheter was removed over a standard J-wire.
Closure Device: Vascular band.
Radiation (mGy): 691.59
DAP (cm2.Gy): 59.1135
Fluoroscopy time (minutes): 12.9
CONCLUSIONS
1. Right dominant circulation with nonocclusive, tandem 50% and 30-40% lesions in the proximal and mid circumflex (IFR = 0.98), a 30% lesion in the mid LAD, a 90% lesion in the apical LAD and a densely calcified, 80% lesion in the proximal LAD
status post successful intracoronary lithotripsy (shockwave 3.5 x 12 lithotripsy balloon) and IVUS guided PCI (Xience Skypoint 3.25 x 28 TOBIAS, postdilated with a 3.5 NC balloon throughout and a 4.0 x 12 NC balloon in the proximal margin) with
reduction in stenosis to 0%, maintaining BRYAN-3 flow.
2. Recent PCI of the distal RCA and crux for high risk non-ST elevation myocardial infarction.
RECOMMENDATIONS:
1. Expectant management after cardiac catheterization via right radial approach.
2. Limited weight bearing on the right wrist for one week.
3. Maintain dual antiplatelet therapy with aspirin and ticagrelor for at least 12 months, followed by aspirin indefinitely.
4. Aggressive secondary prevention with high-dose, high potency statin.
5. OMT/GDMT as hemodynamics will tolerate.
6. Echocardiogram ordered and pending.
7. The patient must stop vaping.
8. Referral to cardiac rehab.
Copy to: Jacob Braxton M.D., GREY Crabtree
Bridger Gonzales DO, FACC, FACP
--- NOTE | 2024-05-15 12:52 | W.PN.HOSP.TC ---
Today's Communication/Plan
-
DAPT
Statin
cards recs
monitor on tele
Assessment / Plan
Assessment / Plan
General: Well Developed, Well Nourished and No Apparent Distress
HEENT: Normocephalic, Atraumatic and Moist Mucous Membranes
Respiratory: Clear to Auscultation; Negative Wheezes, Rales or Rhonchi
Cardiac: Regular Rhythm and S1/S2
GI: Soft, Nontender and Nondistended
Musculoskeletal: No Clubbing, No Cyanosis and No Edema
Neuro: Awake, Alert and Oriented
Non-ST Elevation WI
-Consulted Cardiology
-underwent TOBIAS x 2 to mid-distal RCA
-s/p angioplasty with TOBIAS to LAD
-Echo pending
-Continue Nitro-Patch
-Continue aspirin/Brilinta
- LDL 115/HDL40/A1C 6
-Hold beta-eduard as history of bradycardia
-Cardiology recs
Syncope seems likely secondary to arrhythmia secondary to severe CAD
-Monitor on telemetry
-Status post cardiac intervention
Nicotine Dependence
-patient told to quit vaping. Told he is done with Nicotine
-Continue nicotine patch
Hyperlipidemia
Continue with high-dose statin
Transaminitis likely 2/2 Troponin elevation
-monitor for now
DVT proph: Lovenox
Code Status: Full Code
d/w with spouse at bedside in details
Anticipated Discharge: Within 24 hours
Subjective/Interval History
-
Date of Service: May 15, 2024
ambulating in room without difficulty
no chest pain
Objective Data
-
Labs:
Laboratory Results
05/15/24
04:20
WBC 8.3
Hgb 15.2
Hct 45.2
Plt Count 281
Sodium 137
Potassium 4.5
Chloride 103
Carbon Dioxide 25
BUN 17
Creatinine 1.0
Glucose 104 H
Calcium 9.6
Total Bilirubin 1.8 H
AST 199 H
ALT 54 H
Alkaline Phosphatase 70
Vital Signs:
Vital Signs
Temp Pulse Resp BP Pulse Ox
98.5 F 73 18 112/75 99
05/15/24 12:19 05/15/24 10:00 05/15/24 12:19 05/15/24 06:53 05/15/24 12:19
I&O
05/14/24 05/15/24 05/16/24
06:59 06:59 06:59
Intake Total 480 / 480
Balance 480 / 480
--- NOTE | 2024-05-15 12:53 | PTCARENOTE ---
Report from Bernadette in the petroleum refinery laborer; Rec'd pt back AAOx3 w/no c/o CP. Pt's Nitro patch D/C'd & patch removed in petroleum refinery laborer. Pt w/R radial band on w/8 CC of air. R radial site w/no signs or symptoms of bleeding or hematoma. SpO2 on R hand 98% on RA. Pt
advised of bedrest restrictions & plan of care. Pt w/callbell within reach & at bedside.
--- NOTE | 2024-05-15 12:57 | CM ---
spoke with pt in room, he is prev indep, lives with his in a 2 story home with 2 steps to enter. he denies any dc plannin gneeds or dme's. plan is for dc to home when medically stable.
--- NOTE | 2024-05-15 15:41 | CM ---
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
--- NOTE | 2024-05-15 16:13 | PTCARENOTE ---
Pt's R radial removed at 1530. Dressing applied & site C/D/I. Shortly after removing the band, area of swelling appeared above where band had been. Area felt firm to the touch. Measured hematoma as 4.0 cm x 6.4 cm x 0.2cm. Area marked for continued
monitoring. Kamini Palacios in to see pt & assess hematoma. No addtl orders rec'd. Pt advised again about RUE restrictions. Pt verbalized his understanding.
Upon reassessment, hematoma is softer & pt is reporting less pain at the site. Rates as 2/10. Size unchanged from prev assessment.
[2024-05-15] MEDS: LOVENOX 40 MG SC (19:41)
[2024-05-15] MEDS: LIPITOR 80 MG PO (19:43)
[2024-05-15] MEDS: BRILINTA 90 MG PO (19:43)
--- NOTE | 2024-05-15 20:55 | PTCARENOTE ---
Rec'd pt at change of shift. Pt denies any pain or discomfort. Pt reports feeling 'dizzy' at 19:15. BP taken and stable at 110/88. Pt kept on bed rest and agreed to report any changes in feeling of dizziness. R radial site CDI and pt agreed to
limb restriction. Pt resting with call brower in reach and plan of care ongoing. See MAR and flowchart for full pt assessment and care.
[2024-05-16 03:52] VITALS: BP 115/86
[2024-05-16 03:53] VITALS: BP 115/86
[2024-05-16 04:35] LABS: Hematocrit 45.2 % (39.0-52.0); Hemoglobin 15.2 g/dL (13.0-18.0); Mean Corp Hgb Conc. 33.6 g/dL (33.0-37.0); Mean Corpuscular Hgb 28.9 pg (27.0-31.0); Mean Corpuscular Volume 85.9 fL (80.0-94.0); Platelet Count 253 10^3/uL (130-400); Red Blood Cell Count 5.26 10^6/uL (4.70-6.10); Red Cell Dist. Width 13.1 % (11.5-14.5); White Blood Cell Count 9.9 10^3/uL (4.8-10.8)
[2024-05-16 05:24] LABS: ALT (SGPT) 47 U/L (0-50); AST (SGOT) 111 U/L (17-59); Albumin 3.9 g/dl (3.5-5.0); Alkaline Phosphatase 72 U/L (38-126); Blood Urea Nitrogen 17 mg/dl (9-20); Calcium 9.5 mg/dl (8.4-10.2); Carbon Dioxide 23 mmol/L (22-30); Chloride 104 mmol/L (98-107); Estimated Creatinine Clearance 95 ml/min; Glucose 117 mg/dl (70-99); Potassium 4.5 mmol/L (3.5-5.1); Sodium 136 mmol/L (135-145); Total Bilirubin 1.7 mg/dl (0.2-1.3); Total Protein 6.6 g/dl (6.3-8.2); eGFR > 60.00
[2024-05-16 06:56] VITALS: BP 117/103
[2024-05-16 06:58] VITALS: BP 104/81
--- NOTE | 2024-05-16 07:39 | W.PN.CD ---
Today's Communication / Plan
-
DAPT.
Cardiac rehab.
Discharge.
Impression / Plan
-
Impression/Plan: 48-year-old male with hyperlipidemia (untreated) and prediabetes/possible diabetes (untreated), and chronic cigarette use (since age 18) but then switched to all-day vaping 9 years ago who presented with chest pain and syncope at
home, found to have high risk NSTEMI (unable to medically manage chest pain) s/p PCI to occluded mid/distal RCA with residual proximal LAD/LCx disease.
#NSTEMI:
-Acute, threat to life.
-Troponin peaked at 134.
-S/P PCI to mid/distal RCA ([employer] [place] 3.5 x 12, 3.0 x 30 TOBIAS, post dilated with a 3.5 NCB) with Dr. Willett, 05/13/2024.
-Residual CAD: 70% mid LAD, 95% apical LAD, 60% LCX, 50% OM.
-S/P iFR of the LCX (0.98), IVL and IVUS guided PCI to the pLAD (Xience 3.25 x 28 TOBIAS post dilated with a 3.5 NCB throughout, 4.0 NCB in the proximal margin).
-TTE shows preserved systolic function, LVEF 55-60% without regional wall motion abnormalities.
-Continue aspirin, ticagrelor and atorvastatin 80 mg daily; no beta-eduard secondary to baseline bradycardia.
#Syncope
-Acute.
-Likely arrhythmogenic from occluded RCA (transient heart block?).
-Holding beta eduard as noted above.
-Monitor telemetry.
-Daily weights.
#Hyperlipidemia
-Chronic, stable.
-Total cholesterol = 176, LDL = 115, HDL = 40, Triglycerides = 107.
-Continue atorvastatin 80 mg daily. Goal LDL < 55.
#Prediabetes:
-Hemoglobin A1c 6.0%.
-Appropriate lifestyle/dietary management recommended.
#Chronic heavy vaping/prior cigarette use:
-Counseled again today on the importance of vaping cessation; guidance offered (nicotine patches).
#Dispo
-IVU status.
-Full code.
-Discharge planning.
Subjective/Interval History:
iFR of the LCx negative (0.98).
Staged PCI of pLAD yesterday.
Feels well.
DATA:
Cardiac Catheterization/PCI, 05/13/2024:
CONCLUSIONS
1. Evolving non-ST segment elevation inferior wall myocardial infarction with 100% occlusion of the distal RCA. Overlapping 3.5 x 12 mm and 3.0 x 38 mm [place] stents were implanted from the mid to distal RCA and postdilated to high pressures with a
3.5 mm noncompliant balloon
2. Residual coronary disease involving the mid LAD just beyond the first diagonal branch and apical LAD as well as mid circumflex/OM1.
3. Preserved LV systolic function with posterior basal and diaphragmatic inferior hypokinesis
CTA Abdomen/Pelvis, 05/13/2024:
IMPRESSION:
1. No aortic aneurysm or dissection.
2. Suspect mild acute uncomplicated right-sided colitis, likely of infectious/inflammatory etiology.
3. 2.1 cm right hepatic lobe hemangioma.
Cardiac Catheterization/PCI, 05/15/2024:
CONCLUSIONS
1. Right dominant circulation with nonocclusive, tandem 50% and 30-40% lesions in the proximal and mid circumflex (IFR = 0.98), a 30% lesion in the mid LAD, a 90% lesion in the apical LAD and a densely calcified, 80% lesion in the proximal LAD
status post successful intracoronary lithotripsy (shockwave 3.5 x 12 lithotripsy balloon) and IVUS guided PCI (Xience Skypoint 3.25 x 28 TOBIAS, postdilated with a 3.5 NC balloon throughout and a 4.0 x 12 NC balloon in the proximal margin) with
reduction in stenosis to 0%, maintaining BRYAN-3 flow.
2. Recent PCI of the distal RCA and crux for high risk non-ST elevation myocardial infarction.
Transthoracic Echocardiogram, 05/15/2024:
CONCLUSIONS
LV ejection fraction is 55-60%, by visual assessment. No regional wall motion
abnormalities are seen.
Normal right ventricular size and function.
No significant valvular disease.
The IVC is mildly dilated and does not collapse.
No prior study available for comparison.
Physical Exam
Vital Signs/Labs
Vital Signs
Temp Pulse Resp BP Pulse Ox
37.0 C 69 18 115/86 98
05/16/24 07:01 05/16/24 05:00 05/16/24 07:01 05/16/24 03:53 05/16/24 07:01
05/14/24 05/15/24 05/16/24
11:59 11:59 11:59
Actual Weight 89.4 kg
05/16/24 04:04
05/16/24 04:04
APTT Cancelled 05/14/24 00:30
Triglycerides 107 mg/dl (10-149) 05/14/24 06:54
LDL Cholesterol, Calc 115 mg/dl 05/14/24 06:54
VLDL Cholesterol, Calc 21 mg/dl (0-30) 05/14/24 06:54
HDL Cholesterol 40 mg/dl 05/14/24 06:54
LAB Results
05/13/24 05/13/24 05/13/24
10:44 13:32 18:44
Troponin I < 0.012 0.213 H* D 134.000 H* D
05/14/24 05/14/24
00:29 06:54
Troponin I 93.400 H* D 59.400 H* D
Physical Exam
Constitutional: No acute distress and Comfortable
EENT: Anicteric and Moist mucous membranes
Cardiovascular: Rhythm & rate is regular, Pedal edema is absent, JVD pressure is normal, S1S2 is normal and Murmur/rub/gallop absent
Respiratory: Respiratory effort normal, Lungs clear to auscul., Wheeze Absent, Crackles Absent and Rhonchi Absent
GI: Soft, Distention absent, Flat, Non tender and Normal bowel sounds
Neuro/Psych: AO x 3
Other: Cath Site (Right radial access site is C/D/I.)
Data Reviewed
-
Date of Service: May 16, 2024
Medical Decision Making: Reviewed Test Results, Independent Historian Assessment and Test Interpretation
EKG: Tracing Personally Visualized and interpreted and Report Reviewed by me
Echo: Report Reviewed by me
X-Ray/CT/US/MRI/NUC/PET: Image Personally Visualized and interpreted and Report Reviewed by me
Medical Tests (PFT, Pathology etc): Image Personally Visualized and interpreted and Report Reviewed by me
Labs: Labs Reviewed by me
Old Records: Reviewed
[2024-05-16] MEDS: NICODERM TRANSDERMAL 14 MG TRANSDERM (09:33)
[2024-05-16] MEDS: BRILINTA 90 MG PO (09:33)
[2024-05-16] MEDS: LOW STRENGTH ASPIRIN 81 MG PO (09:33)
--- NOTE | 2024-05-16 10:56 | W.PN.HOSP.TC ---
Today's Communication/Plan
-
dc home
Assessment / Plan
Assessment / Plan
General: Well Developed, Well Nourished and No Apparent Distress
HEENT: Normocephalic, Atraumatic and Moist Mucous Membranes
Respiratory: Clear to Auscultation; Negative Wheezes, Rales or Rhonchi
Cardiac: Regular Rhythm and S1/S2
GI: Soft, Nontender and Nondistended
Musculoskeletal: No Clubbing, No Cyanosis and No Edema
Neuro: Awake, Alert and Oriented
Non-ST Elevation NM
-Consulted Cardiology
-underwent TOBIAS x 2 to mid-distal RCA
-s/p angioplasty with TOBIAS to LAD
-Echo 55-60%. No regional wall motion abnormalities are seen. Normal right ventricular size and function. No significant valvular disease.
-Continue Nitro-Patch
-Continue aspirin/Brilinta
- LDL 115/HDL40/A1C 6
-Hold beta-eduard as history of bradycardia
-Cardiology recs
Syncope seems likely secondary to arrhythmia secondary to severe CAD
-Monitor on telemetry
-Status post cardiac intervention
Nicotine Dependence
-patient told to quit vaping. Told he is done with Nicotine
-Continue nicotine patch
Hyperlipidemia
Continue with high-dose statin
Transaminitis likely 2/2 Troponin elevation
-monitor for now
Pre-diabets
A1C of 6. Counseled on diet and exercise w/pcp f/u. d/w with spouse too
DVT proph: Lovenox
Code Status: Full Code
d/w with spouse at bedside in details
D/W w/ith cardiology okay for dc
More than 30 minutes spent in discharge including
Final examination of the patient
Summarizing hospital stay
Instructions for continuing care to all relevant caregivers
Preparation of discharge records, prescriptions, and referral forms
Total time spent (in minutes): 52
Anticipated Discharge: Today
Subjective/Interval History
-
Date of Service: May 16, 2024
Denies chest pain
Objective Data
-
Labs:
Laboratory Results
05/16/24
04:04
WBC 9.9
Hgb 15.2
Hct 45.2
Plt Count 253
Sodium 136
Potassium 4.5
Chloride 104
Carbon Dioxide 23
BUN 17
Creatinine 1.0
Glucose 117 H
Calcium 9.5
Total Bilirubin 1.7 H
AST 111 H
ALT 47
Alkaline Phosphatase 72
Vital Signs:
Vital Signs
Temp Pulse Resp BP Pulse Ox
98.6 F 73 18 104/81 98
05/16/24 07:01 05/16/24 09:00 05/16/24 07:01 05/16/24 06:58 05/16/24 07:01
I&O
05/15/24 05/16/24 05/17/24
06:59 06:59 06:59
Intake Total 480 / 480 960 / 960
Balance 480 / 480 960 / 960
--- NOTE | 2024-05-16 11:02 | W.DCSUMMARY ---
Discharge Summary
Discharge Data
Date of Admission: 05/13/24
Date of Discharge: 05/16/24
-
Pending Results: No
Hospital Course
48-year-old male past medical history of hyperlipidemia, chronic cigarette usage was switched to vaping who presented with chest pain and syncopal episode. Patient was found to have NSTEMI. Patient was by cardiology underwent cardiac
catheterization S/P PCI to mid/distal RCA ) with Dr. Willett, 05/13/2024. TTE shows preserved systolic function, LVEF 55-60% without regional wall motion abnormalities. Patient underwent repeat cardiac catheterization staging with TOBIAS to LAD.
Postcardiac catheterization patient was maintained on aspirin and Brilinta and atorvastatin was also added. Beta-eduard was unable to be added as with baseline bradycardia. Patient also with prediabetes with A1c of 6 and recommended lifestyle and
dietary modification to follow-up with primary doctor. Recommend against complete tobacco cessation. Patient hospitalization were discussed with patient's spouse. Patient be discharged home with outpatient cardiology follow-up.
Discharge Plan
-
Patient Disposition: Home (Routine Discharge)
Discharge Diagnosis/Procedures: NSTEMI
s/p angioplasty and stent x2 to Right Coronary artery (05/13)
s/p lithotripsy with angioplasty and stent x1 to Left Anterior Descending artery (05/15)
Condition: Fair
Diet: Low Cholesterol
Activity: As tolerated
Driving Restrictions: No driving for 24 hours
Other Services: Cardiac Rehab
Instructions: Coronary artery disease, Lowering your risk of prediabetes and type 2 diabetes
Stand Alone Forms: DC Instructions- Cath/EP Lab
Referrals:
[facility] [Outside]
(Cardiac Rehab Orientation appointment and� First Exercise appointment is on 06/26/24 9:00am.
The Cardiac Rehab gym is located on the first floor of the [facility].)
Janeen Newell CRNP [Specified Professional Personl] - 06/08/24 8:40 am (Cardiology followup appointment)
Bulmaro Chery CRNP [Family Provider] - in less than 1 week
Prescriptions:
New
atorvastatin 80 mg Tablet
80 mg PO QPM Qty: 30 0RF
aspirin 81 mg Tablet,Chewable
81 mg PO DAILY Qty: 30 0RF
Brilinta 90 mg Tablet
90 mg PO BID Qty: 60 0RF
No Action
No Current Medications
0
Discharge Orders:
Discharge Patient (As Directed); Ordered 05/16/24
Ordered By: Ad Dominguez
Care Plan Goals
Care Plan Goals:
Problem: Readiness for enhanced knowledge related to diagnosis and treatment plan
Goal: Understand your diagnosis and treatment plan needs, including medications if applicable.
Instructions: Know your diagnosis, underlying causes and treatment plan options, including medications if applicable. Consult with your health care team to learn about your diagnosis and treatment plan, including medications if applicable.
Discharge Date and Time
Discharge Date/Time: 05/16/24 11:35
Print Language: CROATIAN
[2024-05-16 11:04] VITALS: BP 116/79
--- NOTE | 2024-05-16 11:30 | PTCARENOTE ---
Pt's IV line & telemetry D/C'd; D/C instructions discussed w/pt & spouse. Pt left w/personal belongings incl cellphone, waste management engineer, & computer. Pt left w/instructions & Brilinta coupon from . Pt ambulated out unassisted w/spouse driving him home.
[2024-05-16 15:18] LABS: Lipoprotein a (Lp a) 29 mg/dL (<=29)
== END 2024-05-16 11:35 | disposition home or self-care (01) | DRG 324 ==
LOC: IVU 16:31
PROVIDERS: Internal Medicine; Internal Medicine Cardiovascular Disease; Internal Medicine Interventional Cardiology; Nurse Practitioner; Physician Assistant Medical; ADMITTING PHYSICIAN Hospitalist; ATTENDING PHYSICIAN Hospitalist; CONSULT PHYSICIAN Internal Medicine; EMERGENCY PHYSICIAN Student in an Organized Health Care Education/Training Program; FAMILY PHYSICIAN Registered Nurse
PROC: 027035Z Dilation of Coronary Artery, One Artery with Two Drug-eluting Intraluminal Devices, Percutaneous Approach (ICD-10-PCS; 2024-05-13)
PROC: 4A023N7 Measurement of Cardiac Sampling and Pressure, Left Heart, Percutaneous Approach (ICD-10-PCS; 2024-05-13)
PROC: B2111ZZ Fluoroscopy of Multiple Coronary Arteries using Low Osmolar Contrast (ICD-10-PCS; 2024-05-13)
PROC: B2151ZZ Fluoroscopy of Left Heart using Low Osmolar Contrast (ICD-10-PCS; 2024-05-13)
PROC: 4A033BC Measurement of Arterial Pressure, Coronary, Percutaneous Approach (ICD-10-PCS; 2024-05-15)
PROC: B240ZZ3 Ultrasonography of Single Coronary Artery, Intravascular (ICD-10-PCS; 2024-05-15)
PROC: 027034Z Dilation of Coronary Artery, One Artery with Drug-eluting Intraluminal Device, Percutaneous Approach (ICD-10-PCS; 2024-05-15)
PROC: 02F03ZZ Fragmentation in Coronary Artery, One Artery, Percutaneous Approach (ICD-10-PCS; 2024-05-15)
DX: I21.4 Non-ST elevation (NSTEMI) myocardial infarction (principal); E78.00 Pure hypercholesterolemia, unspecified; M54.9 Dorsalgia, unspecified; R20.0 Anesthesia of skin; R73.01 Impaired fasting glucose; F17.290 Nicotine dependence, other tobacco product, uncomplicated; R73.03 Prediabetes; I25.10 Atherosclerotic heart disease of native coronary artery without angina pectoris; R74.01 Elevation of levels of liver transaminase levels
CPT/HCPCS: 71275; 74174; 76937; 80048; 80053; 80061; 83036; 83695; 84484; 85025; 85027; 85347; 85730; 92972; 92978; 93005; 93306; 93454; 93458; 93799; 96365; 96375; 99152; 99153; 99291; 99406; C1725; C1753; C1761; C1769; C1874; C1894; C9600; Q9967

== ENCOUNTER 2024-05-17 17:30 | Emergency (ER) | payer BC, SELFPAY ==
[2024-05-17 17:34] VITALS: BP 126/82
--- NOTE | 2024-05-17 19:44 | ED.GENMED ---
History of Present Illness
General
Chief Complaint: Allergic Reaction
Time Seen by Provider: 05/17/24 19:44
History of Present Illness
History of Present Illness:
TIME OF INITIAL ENCOUNTER:
HPI: Patient was admitted here 4 days ago up until yesterday with a non-STEMI. He had stent placed in the mid/distal RCA and TOBIAS to the LAD. He was discharged on aspirin and Brilinta as well as atorvastatin. He has no new chest pain. He was
concerned because he had worsening urticaria that started while he was in the hospital and now is 'more itchy today' Dr. Braxton told him to come to the ER.
EXAM:
GENERAL: Well appearing in no distress
HEENT: Moist oral mucosa, posterior oropharynx widely patent, questionable if any tongue edema, no uvular edema
CARDIOVASCULAR: No murmurs, normal heart rate, regular rhythm, No chest wall tenderness
PULMONARY: No respiratory distress, breath sounds are clear and equal
ABDOMEN: Soft with no peritoneal signs, no tenderness
NEUROLOGIC: Excellent strength all extremities, no coordination deficits
PSYCHIATRIC: Appropriate mental status, normal insight and judgement
EXTREMITIES: Nontender, no edema, moves all extremities equally
SKIN: Urticarial lesions noted to the torso
NUMBER AND COMPLEXITY OF PROBLEMS ADDRESSED AT THE ENCOUNTER
� Chronic conditions affecting care: Prediabetes, CAD,
� Acute Exacerbation and/or Progression of Chronic Illness: This is an acute problem
� Differential Diagnosis includes: Urticaria nonspecific, urticaria related to medication
AMOUNT AND/OR COMPLEXITY OF DATA TO BE REVIEWED AND ANALYZED
� I performed an independent evaluation of and my interpretation is:
EKG:
CT:
X-rays:
Laboratory Studies:
Other:
� Review of other/old records: I reviewed old records as summarized in the HPI
� Clinical information was obtained by an independent historian: I spoke to at bedside
� Prescriptions/Medications Considered but not given:
� Further testing considered but not performed: No indication for blood work
RISK OF COMPLICATIONS AND/OR MORBIDITY OR MORTALITY OF PATIENT MANAGEMENT
� Social determinants of health affecting care: Lives at home
� Discussion with other providers: I spoke to Dr. Bennett covering for Dr. Braxton. She recommends to hold the atorvastatin for now, switch to Plavix from Brilinta and load Plavix now. Will also placed on omeprazole and she
agrees with prednisone.
� Escalation of care including admission/observation vs risk of discharge considered: Discussed case with Dr. Bennett
ANY OTHER UPDATES:
Gave prescription for prednisone, omeprazole, EpiPen, and switch to Plavix after giving a loading dose here.
Past History
Past History
ED Past Medical History: Hypercholesterolemia (Minimal)
Social History
Tobacco: Former smoker
Personal:
Living: with family
Employment: Employed
Family History
Family History: Negative Early CAD or CAD
Phy Exam
Physical Exam
Physical Exam:
See HPI
Course
Orders/Labs/Results
Orders:
Orders
05/17/24 20:13
Clopidogrel Bisulfate [Plavix] 600 mg PO NOW STA
Diphenhydramine [Benadryl] 25 mg PO NOW STA
Pantoprazole [Protonix] 40 mg PO NOW STA
Prednisone [Deltasone] 50 mg PO NOW STA
Vital Signs
Initial and Last Documented VS:
Initial Vital Signs
Temp Pulse Resp BP Pulse Ox
36.6 C 76 16 126/82 98
05/17/24 17:34 05/17/24 17:34 05/17/24 17:34 05/17/24 17:34 05/17/24 17:34
Last Documented Vital Signs
Temp Pulse Resp BP Pulse Ox
36.6 C 71 16 122/70 99
05/17/24 17:34 05/17/24 20:54 05/17/24 20:54 05/17/24 20:54 05/17/24 20:54
*Critical Care Note
Total Time (30-74mins, 75-104mins- exclusive of procedures): Not Applicable
ED Attending Note
-
Portions of this chart may have been created with voice recognition software.� Occasional wrong word or��sound alike� substitutions may have occurred due to the inherent limitations of voice recognition software.
Discharge Plan
Departure
Patient Disposition: Home (Routine Discharge)
Date of Disposition: 05/17/24
Time of Disposition: 20:14
Patient with high blood pressure during this ER visit?: No
Discharge Problem:
Urticaria
Instructions: Hives (DC), BLOOD PRESSURE
Prescriptions:
New
omeprazole magnesium 20 mg capsule,delayed release(DR/EC)
40 mg PO DAILY Qty: 28 0RF
prednisone 50 mg tablet
50 mg PO DAILY Qty: 4 0RF
clopidogrel [Plavix] 75 mg tablet
75 mg PO DAILY Qty: 30 0RF
epinephrine [EpiPen 2-Kieran] 0.3 mg/0.3 mL auto-injector
0.3 mg IM Q5-15M PRN (Reason: anaphylaxis) Qty: 2 0RF
No Action
atorvastatin 80 mg Tablet
80 mg PO QPM Qty: 30 0RF
aspirin 81 mg Tablet,Chewable
81 mg PO DAILY Qty: 30 0RF
Brilinta 90 mg Tablet
90 mg PO BID Qty: 60 0RF
Activity Restrictions/Additional Instructions:
Stop atorvastatin for now. Continue aspirin. We are switching you from Brilinta to Plavix. I am also sending a prescription for prednisone. I am also sending a prescription for omeprazole to help prevent stomach acid. Follow-up with your
meterman and also consider following up with an cut out operator.
Interventions
Interventions:
*Risk Screen - Suicide Last Done: 05/17/24 17:34
*General Assessment Last Done: 05/17/24 20:15
*Neglect/Abuse Screening Last Done: 05/17/24 17:34
*ED- Fall Risk Assessment Last Done: 05/17/24 20:15
*Nursing Disposition Last Done: 05/17/24 20:54
ED- Cardiac Assessment Last Done: 05/17/24 20:15
ED- Pulmonary Assessment Last Done: 05/17/24 20:15
ED-Skin Assessment Last Done: 05/17/24 20:15
Discharge Date and Time
Print Language: [place] CITIZEN
[2024-05-17] MEDS: BENADRYL 25 MG PO (20:44)
[2024-05-17] MEDS: PROTONIX 40 MG PO (20:44)
[2024-05-17] MEDS: DELTASONE 50 MG PO (20:44)
[2024-05-17] MEDS: PLAVIX 600 MG PO (20:44)
[2024-05-17 20:54] VITALS: BP 122/70
== END 2024-05-17 21:07 | disposition home or self-care (01) ==
LOC: EMR 17:30
PROVIDERS: EMERGENCY PHYSICIAN Emergency Medicine; FAMILY PHYSICIAN Registered Nurse
DX: L50.9 Urticaria, unspecified (principal); E78.00 Pure hypercholesterolemia, unspecified
CPT/HCPCS: 99282

== ENCOUNTER 2024-06-05 08:40 | Outpatient (RCR) | payer BC, SELFPAY | END 2024-06-05 23:59 | disposition home or self-care (01) | LOC: CRHB 08:40 | PROVIDERS: ATTENDING PHYSICIAN Internal Medicine; FAMILY PHYSICIAN Registered Nurse | DX: I21.4 Non-ST elevation (NSTEMI) myocardial infarction (principal); Z95.5 Presence of coronary angioplasty implant and graft; I25.2 Old myocardial infarction; I25.10 Atherosclerotic heart disease of native coronary artery without angina pectoris | CPT/HCPCS: 93797; 93798; G0422 ==

== ENCOUNTER 2024-06-26 10:25 | Outpatient (RCR) | payer BC, SELFPAY | END 2024-06-27 12:13 | disposition home or self-care (01) | LOC: CRHB 10:25 | PROVIDERS: ATTENDING PHYSICIAN Internal Medicine; FAMILY PHYSICIAN Registered Nurse | DX: I21.4 Non-ST elevation (NSTEMI) myocardial infarction (principal); I25.2 Old myocardial infarction; Z95.5 Presence of coronary angioplasty implant and graft; I25.10 Atherosclerotic heart disease of native coronary artery without angina pectoris | CPT/HCPCS: 93798 ==

== ENCOUNTER 2024-12-03 19:49 | Emergency (ER) | payer BC, SELFPAY ==
[2024-12-03 19:57] VITALS: BP 135/95; BMI 28.3
[2024-12-03 20:12] LABS: Hematocrit 42.6 % (39.0-52.0); Hemoglobin 14.7 g/dL (13.0-18.0); Mean Corp Hgb Conc. 34.5 g/dL (33.0-37.0); Mean Corpuscular Volume 82.9 fL (80.0-94.0); Nucleated Red Blood Cells % 0 % (-); Platelet Count 268 10^3/uL (130-400); Red Cell Dist. Width 12.9 % (11.5-14.5)
[2024-12-03 20:13] VITALS: BP 143/96
--- NOTE | 2024-12-03 20:26 | EDRN ---
Pt c/o of CP over the past 3 days. States the pain feels tight with a pain rating fluctuating between 4-6 out of 10. Pt had an [place] May 2024 where 3 stents were placed. Pt took 0.3 mg nitro at 1800 which gave him relief for 30 minutes and brought
the pain down to a 2 out of 10, but then it returned. Pt states he was concerned it was anxiety related, so he took 5 mg valium around noon which gave him no relief. He also took 4 tums at 1900 with no relief. Pt states this CP does not feel the
same as the pain he had during [place] but d/t cardiac hx and extended days of pain he was concerned which prompted him to come be evaluated.
[2024-12-03 20:33] LABS: ALT (SGPT) 42 U/L (0-50); AST (SGOT) 36 U/L (17-59); Albumin 4.5 g/dl (3.5-5.0); Alkaline Phosphatase 58 U/L (38-126); Blood Urea Nitrogen 16 mg/dl (9-20); Calcium 9.4 mg/dl (8.4-10.2); Carbon Dioxide 25 mmol/L (22-30); Chloride 108 mmol/L (98-107); Estimated Creatinine Clearance 105 ml/min; Glucose 139 mg/dl (70-99); Potassium 4.2 mmol/L (3.5-5.1); Sodium 139 mmol/L (135-145); Total Protein 7.2 g/dl (6.3-8.2); eGFR > 60.00
--- NOTE | 2024-12-03 20:36 | ED.GENMED ---
History of Present Illness
General
Chief Complaint: Chest Pain
Source: patient and spouse
Time Seen by Provider: 12/03/24 20:18
History of Present Illness
History of Present Illness:
This patient is a 49-year-old male presents emergency department with complaints of chest pain that started on Wednesday. The pain is constant but waxes and wanes in intensity without any specific intensifying or relieving factors. He describes it as
a 'burn' also described as a 'tight' feeling. Patient denies associated dyspnea, diaphoresis, nausea, vomiting, neck pain, jaw pain, abdominal pain, leg swelling, recent immobilization, recent trauma. He is a non-smoker. Patient had a recent
stent placement within the last year and states that the symptoms are not similar to that event. At times he will also feel it in the left side of his back. Patient states that he is a 'anxious man', and suspects the symptoms are likely related to
anxiety but wanted to be sure. He did take nitro, Tums, and Valium with partial relief of symptoms for
Past History
Past History
ED Past Medical History: CAD, HTN and Hypercholesterolemia (Minimal)
ED Past Surgical History: Cardiac
Social History
Tobacco: Former smoker
Alcohol: Occasional
Drug: None
Personal:
Living: with family
Employment: Employed
Family History
Family History: Negative Early CAD or CAD
Phy Exam
Physical Exam
Physical Exam:
GENERAL: Alert , in no apparent distress
EYE: pupils equal and reactive
NECK: Supple, no significant adenopathy.
ENT: o/p clr, mmm.
CARDIAC: Regular rate and rhythm .
LUNGS: Clear breath sounds bilaterally, no acute respiratory distress, no wheezes/rales/rhonchi
ABDOMEN: Soft, without focal tenderness, no r/g, no cvat
NEUROLOGICAL: Alert and oriented, no focal neuro deficits
SKIN: Warm and dry, skin intact.
MUSCULOSKELETAL: No edema, well perfused.
PSYCH: Normal and appropriate interaction.
Scores
Heart Score for Chest Pain Patients
STEMI patient?: Not applicable
Course
Orders/Labs/Results
Orders:
Orders
12/03/24 19:50
Electrocardiogram (*1) Urgent
Reason for Study: Chest Pain
12/03/24 19:51
EKG- Treatment ONCE
12/03/24 20:03
Complete Blood Count/With Diff Urgent
Comprehensive Metabolic Panel Urgent
Troponin I Urgent
12/03/24 23:00
Troponin I Urgent
Abnormal Lab Results
12/03/24
20:03
Chloride 108 H mmol/L
(98-107)
Glucose 139 H mg/dl
(70-99)
12/03/24 20:03
12/03/24 20:03
Vital Signs
Initial and Last Documented VS:
Initial Vital Signs
Temp Pulse Resp Pulse Ox
98.5 F 64 20 99
12/03/24 19:51 12/03/24 19:51 12/03/24 19:51 12/03/24 19:51
Last Documented Vital Signs
Temp Pulse Resp BP Pulse Ox
98.5 F 67 20 143/96 96
12/03/24 19:51 12/03/24 20:45 12/03/24 20:45 12/03/24 20:13 12/03/24 20:45
*Pulse Oximetry
SaO2: 97
Oxygen Mode of Delivery: Room air
Patient hypoxic: no
*Critical Care Note
Total Time (30-74mins, 75-104mins- exclusive of procedures): Not Applicable
Update Note
Update Note:
Patient presents to the Emergency Department with __chest pain
Number and Complexity of Problems Addressed at the Encounter
� Chronic conditions affecting care:
� Acute Exacerbation and/or Progression of Chronic Illness:
� Differential Diagnosis includes: But not limited to ACS, anxiety, pleurisy, pericarditis, heart failure, etc. etc.
Amount and/or Complexity of Data to be Reviewed and Analyzed
� I performed an independent evaluation of and my interpretation is:
EKG: Read by me, compared to prior, unchanged, normal sinus rhythm, normal rate, no acute ischemia, nonspecific T wave inversions which are unchanged.
CT:
Xrays:
Laboratory Studies: Generally unremarkable, troponin normal
Other:
� Review of other/old records reveals: I reviewed patient's presentation when he was here most recently with a non-STEMI.
� Clinical information was obtained by an independent historian: who is bedside
� Prescriptions/Medications Considered but not given:
� Further testing considered but not performed:
Risk of Complications and/or Morbidity or Mortality of Patient Management
� Social determinants of health affecting care:
� Discussion with other providers (PCP, Hospitalists, Consultants, etc):
� Escalation of care including admission/observation vs risk of discharge considered: 9:04 PM Long discussion with patient and . Although first troponin is normal, technically he has pain for last 3 days, he does describe
the pain as waxing and waning, and I recommend that he have a complete workup which includes a repeat troponin here. He understands that without this we cannot fully reassure him of his workup here, nonetheless he declines. He is aware that if he
changes mind we are eager to care for him and he should return the emergency department. 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 Strongly doubt other emergent etiology of his symptoms such as dissection (pain not ripping or
tearing, not sudden onset, etc.), PE, (no pleuritic pain, no dyspnea, no tachycardia, etc.) he, etc. etc.
ED Attending Note
-
Portions of this chart may have been created with voice recognition software.� Occasional wrong word or��sound alike� substitutions may have occurred due to the inherent limitations of voice recognition software.
Discharge Plan
Departure
Patient Disposition: Home (Routine Discharge)
Date of Disposition: 12/03/24
Time of Disposition: 21:02
Patient with high blood pressure during this ER visit?: Yes
Condition: Good
Discharge Problem:
Chest pain
Instructions: Chest Pain CBC Follow Up, BLOOD PRESSURE
Prescriptions:
No Action
atorvastatin 80 mg Tablet
80 mg PO QPM Qty: 30 0RF
aspirin 81 mg Tablet,Chewable
81 mg PO DAILY Qty: 30 0RF
Brilinta 90 mg Tablet
90 mg PO BID Qty: 60 0RF
omeprazole magnesium 20 mg capsule,delayed release(DR/EC)
40 mg PO DAILY Qty: 28 0RF
prednisone 50 mg tablet
50 mg PO DAILY Qty: 4 0RF
clopidogrel [Plavix] 75 mg tablet
75 mg PO DAILY Qty: 30 0RF
epinephrine [EpiPen 2-Kieran] 0.3 mg/0.3 mL auto-injector
0.3 mg IM Q5-15M PRN (Reason: anaphylaxis) Qty: 2 0RF
Referrals:
UNKNOWN - PT DOES,NOT KNOW [Family Provider]
Activity Restrictions/Additional Instructions:
PLEASE CONTACT YOUR GUEST SERVICES FOR CLOSE FOLLOW UP. IF YOU DEVELOP INCREASING/NEW PAIN, ANY TROUBLE BREATHING, FEVER, VOMITING, DIZZINESS, SWELLING, OR OTHER WORRISOME SIGNS, GO TO THE ER IMMEDIATELY! WE RECOMMEND THAT YOU COMPLETE YOUR WORK UP
HERE WITH ADDITIONAL TESTING, BUT YOU DECLINE. IF YOU CHANGE YOUR MIND ABOUT THIS, PLEASE COME BACK!
Interventions
Interventions:
*Risk Screen - Suicide Last Done: 12/03/24 19:51
*General Assessment Last Done: 12/03/24 19:51
*Neglect/Abuse Screening Last Done: 12/03/24 19:51
*ED COVID-19 Vaccine History Last Done: 12/03/24 19:51
ED- Cardiac Assessment Last Done: 12/03/24 20:13
Discharge Date and Time
Print Language: LITHUANIAN
[2024-12-03 20:44] LABS: Troponin I < 0.012 ng/ml
--- NOTE | 2024-12-03 20:59 | EDRN ---
Pt stating he would like to leave and not wait for second troponin draw at 2300. Dr. Boyd made aware and states she will go see pt.
[2024-12-03 21:00] VITALS: BP 128/89
[2024-12-03 21:26] VITALS: BP 128/89
== END 2024-12-03 21:28 | disposition home or self-care (01) ==
LOC: EMR 19:49
PROVIDERS: EMERGENCY PHYSICIAN Emergency Medicine
DX: R07.9 Chest pain, unspecified (principal); I25.10 Atherosclerotic heart disease of native coronary artery without angina pectoris; I10 Essential (primary) hypertension; E78.00 Pure hypercholesterolemia, unspecified; Z95.5 Presence of coronary angioplasty implant and graft; Z87.891 Personal history of nicotine dependence
CPT/HCPCS: 99284; 80053; 84484; 85025; 93005

== ENCOUNTER → 2024-12-12 12:38 | Outpatient (REF) | payer BC, SELFPAY | LOC: HWRCS 12:38 | PROVIDERS: ATTENDING PHYSICIAN Nurse Practitioner Gerontology; FAMILY PHYSICIAN Registered Nurse | DX: R07.9 Chest pain, unspecified (principal) | CPT/HCPCS: 78452; 93017; A9500 ==